=== PATIENT | male | born 1950 | race Caucasian/White ===

== ENCOUNTER 2022-01-15 07:12 | Observation (INO) | payer OTHER ==
[2022-01-14 13:05] VITALS: BMI 32.5
[2022-01-15] MEDS ORDERED: Vancomycin (BATCH) 1.5 GRAM/300 ML BAG ONE (07:56)
[2022-01-15] MEDS ORDERED: Sodium Chloride 0.9% 100 ML ONE ×2 (07:56→09:26)
[2022-01-15] MEDS ORDERED: Tranexamic Acid 1,000 MG/10 ML VIAL ONE ×2 (07:56→11:49)
[2022-01-15 08:02] LABS: Prothrombin Time 12.8 sec (12.0-14.7)
[2022-01-15 08:18] LABS: SARS-CoV-2 NAA Rapid Test Not Detected (NotDetected)
[2022-01-15] MEDS ORDERED: Fentanyl 100 MCG/2 ML VIAL ONE (08:35)
[2022-01-15] MEDS ORDERED: Ropivacaine 0.5% HCl/PF (150 MG/30 ML VIAL) ONE (08:35)
[2022-01-15] MEDS ORDERED: Midazolam HCl 2 mg/2 ml Vial ONE (08:35)
[2022-01-15] MEDS ORDERED: EPINEPHrine 1 MG/ML AMP ONE (09:13)
[2022-01-15] MEDS ORDERED: Bupivacaine 0.25% HCL 30 ML VIAL ONE (09:13)
[2022-01-15] MEDS ORDERED: fentaNYL Citrate/PF 100 MCG/2 ML SYRINGE ONE (09:21)
[2022-01-15] MEDS ORDERED: Fentanyl 100 MCG/2 ML VIAL IV PRN (09:23)
[2022-01-15] MEDS ORDERED: CEFAZOLIN 2 GM VIAL ONE (09:26)
[2022-01-15] MEDS ORDERED: Ropivacaine 0.2% 550 ML 550 ML NERVE BLCK SCH (09:30)
[2022-01-15] MEDS ORDERED: Promethazine HCl 25 MG/ML VIAL IM PRN ×3 (09:30→11:29)
[2022-01-15] MEDS ORDERED: Ondansetron PF 4 MG/2 ML Vial IVP PRN ×2 (09:30→11:20)
[2022-01-15] MEDS ORDERED: traMADol HCl 50 MG TAB PO PRN (09:30)
[2022-01-15] MEDS ORDERED: HYDROcodone/Acetaminophen 10/325 mg Tablet PO PRN (09:30)
[2022-01-15] MEDS ORDERED: Zolpidem Tartrate 5 MG TAB PO PRN ×2 (09:30→11:20)
[2022-01-15] MEDS ORDERED: Ketorolac Tromethamine 30 MG/ML VIAL ONE (09:38)
[2022-01-15] MEDS ORDERED: Dexamethasone 20 MG/5 ML VIAL ONE (09:38)
[2022-01-15] MEDS ORDERED: PROPOFOL 200 MG/20 ML VIAL ONE (09:38)
[2022-01-15] MEDS ORDERED: Ondansetron PF 4 MG/2 ML Vial ONE (09:38)
[2022-01-15] MEDS ORDERED: Acetaminophen 325 MG TAB PO PRN (11:20)
[2022-01-15] MEDS ORDERED: diphenhydrAMINE 25 MG CAP PO PRN (11:20)
[2022-01-15] MEDS ORDERED: Promethazine HCl 25 MG/ML VIAL IVPB PRN (11:29)
[2022-01-15] MEDS ORDERED: Ondansetron HCl/PF 4 MG/2 ML Vial IVP PRN (11:29)
[2022-01-15] MEDS ORDERED: FENTANYL 50 MCG/ML VIAL 50 MCG/ML VIAL ONE ×2 (11:34→11:49)
[2022-01-15] MEDS ORDERED: HYDROmorphone 2 MG/ML VIAL ONE (12:27)
[2022-01-15] MEDS ORDERED: HYDROmorphone 2 MG/ML VIAL SLOW IVP PRN (12:45)
[2022-01-15] MEDS: Sodium Chloride 0.9% 1,000 ML IV SCH ×2 (13:48→22:28)
[2022-01-15] MEDS: CEFAZOLIN 2 GM in Sodium Chloride 0.9% 100 ML IVPB SCH (17:53)
[2022-01-15] MEDS: HYDROcodone/Acetaminophen 10/325 mg Tablet PO PRN ×2 (18:09→23:21)
[2022-01-15] MEDS ORDERED: Vancomycin 1.5 GRAM/300 ML BAG 1.5 GM in Premix Bag 1 BAG IVPB SCH (21:00)
[2022-01-15] MEDS: traMADol HCl 50 MG TAB PO PRN (21:17)
[2022-01-15] MEDS: Aspirin 81 mg Enteric Coated Tablet PO SCH (21:18)
[2022-01-15] MEDS: Senokot S 8.6-50 MG TAB PO SCH (21:18)
[2022-01-15] MEDS: Ferrous Gluconate 324 MG TAB PO SCH (21:18)
[2022-01-15] MEDS: Atorvastatin Calcium 20 MG TAB PO SCH (21:18)
[2022-01-16] MEDS: CEFAZOLIN 2 GM in Sodium Chloride 0.9% 100 ML IVPB SCH (01:42)
[2022-01-16] MEDS: Sodium Chloride 0.9% 1,000 ML IV SCH ×2 (01:50→16:10)
[2022-01-16] MEDS: HYDROcodone/Acetaminophen 10/325 mg Tablet PO PRN ×4 (04:01→17:51)
[2022-01-16 06:01] LABS: Hemoglobin 13.5 g/dL (14.0-18.0); Mean Corpuscular HGB CONC 32.9 g/dL (32.0-36.0); Mean Corpuscular Hemoglobin 33.8 pg (27.0-31.0); Mean Platelet Volume 6.5 fL (7.4-10.4); Platelet Count 263 thou/uL (130-400); RBC Distribution Width 11.8 % (11.5-14.5); Red Blood Cell (RBC) Count 4.01 mill/uL (4.70-6.10); White Blood Cell (WBC) Count 10.8 thou/uL (4.8-10.8)
[2022-01-16] MEDS: Aspirin 81 mg Enteric Coated Tablet PO SCH ×2 (08:26→21:05)
[2022-01-16] MEDS: Senokot S 8.6-50 MG TAB PO SCH ×2 (08:26→20:42)
[2022-01-16] MEDS: Multivitamin W/ Minerals 1 TAB PO SCH (08:26)
[2022-01-16] MEDS: Ferrous Gluconate 324 MG TAB PO SCH ×2 (08:26→20:42)
[2022-01-16] MEDS: traMADol HCl 50 MG TAB PO PRN ×2 (11:48→20:43)
[2022-01-16] MEDS: Atorvastatin Calcium 20 MG TAB PO SCH (20:42)
[2022-01-17] MEDS: HYDROcodone/Acetaminophen 10/325 mg Tablet PO PRN ×2 (02:21→08:34)
[2022-01-17] MEDS: Sodium Chloride 0.9% 1,000 ML IV SCH (03:22)
[2022-01-17] MEDS: traMADol HCl 50 MG TAB PO PRN (05:36)
[2022-01-17 06:07] LABS: Hemoglobin 14.2 g/dL (14.0-18.0); Mean Corpuscular HGB CONC 32.3 g/dL (32.0-36.0); Mean Corpuscular Hemoglobin 33.6 pg (27.0-31.0); Mean Platelet Volume 6.5 fL (7.4-10.4); Platelet Count 269 thou/uL (130-400); Red Blood Cell (RBC) Count 4.23 mill/uL (4.70-6.10); White Blood Cell (WBC) Count 9.9 thou/uL (4.8-10.8)
[2022-01-17] MEDS: Aspirin 81 mg Enteric Coated Tablet PO SCH (08:35)
[2022-01-17] MEDS: Senokot S 8.6-50 MG TAB PO SCH (08:35)
[2022-01-17] MEDS: Ferrous Gluconate 324 MG TAB PO SCH (08:35)
[2022-01-17] MEDS: Multivitamin W/ Minerals 1 TAB PO SCH (08:35)
[2022-01-17 09:22] VITALS: BP 154/99; TEMP 98.4
== END 2022-01-17 10:15 | disposition home or self-care (01) ==
LOC: SDC 07:12 → SURG A 14:00
PROVIDERS: ADMIT Orthopaedic Surgery; ATTEND Orthopaedic Surgery
PROC: 0SRC0J9 Replacement of Right Knee Joint with Synthetic Substitute, Cemented, Open Approach (ICD-10-PCS; principal; 2022-01-15)
DX: M17.11 Unilateral primary osteoarthritis, right knee (principal); M65.88 Other synovitis and tenosynovitis, other site; M16.11 Unilateral primary osteoarthritis, right hip; E78.00 Pure hypercholesterolemia, unspecified; E66.9 Obesity, unspecified; Z68.32 Body mass index [BMI] 32.0-32.9, adult; Z87.891 Personal history of nicotine dependence; Z79.82 Long term (current) use of aspirin; Z79.899 Other long term (current) drug therapy; Z20.822 Contact with and (suspected) exposure to COVID-19
CPT/HCPCS: 36415; 85027; 85610; 87081; 96374; 96375; 96376; A4306; C1713; C1776; G0378; J0171; J1100; J1170; J1885; J2250; J2405; J2704; J2795; J3010; J3370; J3490; S0020; U0002

== ENCOUNTER 2023-05-14 10:34 | Emergency (ER) | payer MEDICARE ==
[2023-05-14 12:54] LABS: #Eosinphils 0.3 thou/uL (0.0-0.7); #Monocytes 0.6 thou/uL (0.11-0.59); #Neutrophils 5.1 thou/uL (1.40-6.50); %Basophils 0.3 % (0.0-1.0); %Eosinophils 3.6 % (0.0-10.0); %Lymphocytes 21.9 % (21.0-51.0); %Monocytes 7.1 % (0.0-10.0); %Neutrophils 66.5 % (42.0-75.0); Hematocrit 43.3 % (42.0-52.0); Hemoglobin 14.2 g/dL (14.0-18.0); Mean Corpuscular HGB CONC 32.8 g/dL (32.0-36.0); Mean Corpuscular Hemoglobin 33.8 pg (27.0-31.0); Mean Corpuscular Volume 103.1 fl (78.0-98.0); Mean Platelet Volume 8.5 fL (7.4-10.4); Platelet Count 338 10x3/uL (130-400); RBC Distribution Width 13.1 % (11.5-14.5); White Blood Cell (WBC) Count 7.7 10x3/uL (4.8-10.8)
[2023-05-14 13:53] LABS: ALT (SGPT) 25 U/L (8-55); AST (SGOT) 23 U/L (5-34); Albumin 3.8 g/dL (3.4-4.8); Alkaline Phosphatase 76 U/L (40-110); Anion Gap 14 mmol/L (10-20); BUN (Urea Nitrogen) 20 mg/dL (8.4-25.7); Bilirubin, Total 0.5 mg/dL (0.2-1.2); Calc. Creatinine Clearance 0 mL/min (70-130); Calcium 9.6 mg/dL (7.8-10.44); Carbon Dioxide 25 mmol/L (23-31); Chloride 102 mmol/L (98-107); Estimated GFR 95; Globulin 3.5 g/dL (2.4-3.5); Glucose 97 mg/dL (83-110); Protein, Total 7.3 g/dL (5.8-8.1); Sodium 137 mmol/L (136-145)
== END 2023-05-14 15:00 | disposition home or self-care (01) ==
LOC: ERS 10:34
DX: R60.0 Localized edema (principal); I10 Essential (primary) hypertension
CPT/HCPCS: 36416; 80053; 85025